=== PATIENT | female | born 1995 | race Caucasian/White ===

== ENCOUNTER 2022-05-15 12:42 | Outpatient (CLI) | payer OTHER, SELFPAY ==
--- NOTE | 2022-05-15 13:00 | CRLHL7_ITS ---
For Patients: As a result of the Cures Act, medical imaging exams and procedure reports are released immediately into your electronic medical record. You may view this report before your referring provider. If you have questions, please contact your health care provider. INDICATION: First trimester scan, establish dates. COMPARISON: None. TECHNIQUE: Real-time bazzi-scale imaging of the pelvis was performed. FINDINGS: Sonographic imaging demonstrates a single living intrauterine gestation. The embryo demonstrates a regular cardiac rate measuring 173 beats per minute. The embryo`s crown-rump length measurement of 2.1 cm corresponds to a gestational age of 8 weeks 5 days with a sonographic due date of 12/20/2022. There is a normal-appearing yolk sac. There are no gross abnormalities noted within the embryo at this early state of development. The gestational sac has a normal appearance. There is a 2.0 x 0.4 x 2.2 cm perigestational hemorrhage. The amount of fluid within the sac appears appropriate for gestational age. The cervix is closed. The myometrium appears normal. The ovaries are of normal size. Corpus luteal cyst right ovary. There are no suspicious fluid collections noted in the cul-de-sac. IMPRESSION: Single living intrauterine with sonographic gestational age 8 weeks 5 days and sonographic due date 12/20/2022. Inferior subchorionic hemorrhage measuring 2.0 x 0.4 x 2.2 cm. Dictated by Armand Lezama MD @ 05/15/2022 1:34:16 PM (Electronically Signed)
== END 2022-05-15 12:43 | disposition home or self-care (01) ==
LOC: US 12:44
PROVIDERS: PCP Family Medicine; Visit Provider Advanced Practice Midwife
DX: Z34.91 Encounter for supervision of normal pregnancy, unspecified, first trimester (principal); O20.9 Hemorrhage in early pregnancy, unspecified; Z3A.08 8 weeks gestation of pregnancy
CPT/HCPCS: 76817

== ENCOUNTER 2022-05-15 14:00 | Outpatient (CLI) | payer OTHER, SELFPAY ==
[2022-05-15 19:34] LABS: Chlamydia DNA Amplified* NOT DETECTED (No Detected); GC DNA Amplified* NOT DETECTED (No Detected)
[2022-05-15 21:56] LABS: Hepatitis B Surface Antigen* Negative (Negative)
[2022-05-15 22:09] LABS: HIV 1/2/P24 Combo Screen* Negative (Negative)
[2022-05-15 22:13] LABS: Hepatitis C Virus Antibody* Negative (Negative)
[2022-05-17 17:46] LABS: Rubella Antibody IgG 25.8 IU/mL
[2022-05-17 21:11] LABS: Rapid Plasma Reagin (RPR) Non Reactive (Non Reactive)
== END 2022-05-15 14:01 | disposition home or self-care (01) ==
PROVIDERS: PCP Family Medicine; Visit Provider Advanced Practice Midwife
DX: Z34.91 Encounter for supervision of normal pregnancy, unspecified, first trimester (principal); Z3A.09 9 weeks gestation of pregnancy
CPT/HCPCS: 86592; 86703; 86762; 86803; 86850; 86900; 86901; 87086; 87340; 87491

== ENCOUNTER 2022-07-30 12:42 | Outpatient (CLI) | payer OTHER, SELFPAY ==
--- NOTE | 2022-07-30 13:00 | CRLHL7_ITS ---
For Patients: As a result of the Century Cures Act, medical imaging exams and procedure reports are released immediately into your electronic medical record. You may view this report before your referring provider. If you have questions, please contact your health care provider. INDICATION: Evaluate anatomy. COMPARISON: 05/15/2022 TECHNIQUE: Real time bazzi scale imaging of the fetus was performed as well as color Doppler analysis of the umbilical vessels. FINDINGS: Sonographic imaging demonstrates a single living intrauterine gestation. Fetus demonstrates a regular cardiac rate of 150 beats per minute. Fetus has a variable position. The placenta lies anterior without evidence of placenta previa. The edge of the placenta is located 4.2 cm from the internal cervical os. Amniotic fluid volume appears normal. Single deepest vertical pocket: 4.9 cm. The cervix is closed and measures 3.5 cm in length. The composite ultrasound gestational age is calculated at 20 weeks 4 days with an estimated sonographic due date of 12/13/2022. The estimated weight is 358 grams which lies at the 66th %. The following biometric measurements were obtained: Biparietal diameter: 4.9 cm/20 weeks 6 days 79th% Head circumference: 17.9 cm/20 weeks 2 days 52nd% Abdominal circumference: 15.0 cm/20 weeks 2 days 47th% Femur length: 3.4 cm/20 weeks 6 days 66th% The HC/AC ratio measures: 1.19 range (1.07-1.25) On anatomic survey, there is a normal appearance of the cerebral ventricles, cavum septi pellucidi, cisterna magna and cerebellum. The nose, lips, and facial profile appear normal. The cervical, thoracic and lumbar spine are well visualized and appear normal. There is a normal four-chamber heart view and the left and right ventricular outflow tracts appear normal. The diaphragm and stomach appear normal. The bladder also appear normal. Mild right renal pelviectasis measuring 3 millimeters. This is considered incidental. There is a normal three-vessel cord and eccentric cord insertion site. The four extremities appear normal. IMPRESSION: Normal OB ultrasound exam with concordance of clinical and sonographic dating. No intrinsic abnormalities noted on anatomic survey. Dictated by Armand Lezama MD @ 07/31/2022 3:31:27 PM (Electronically Signed)
== END 2022-07-30 12:43 | disposition home or self-care (01) ==
LOC: US 12:43
PROVIDERS: PCP Family Medicine; Visit Provider Advanced Practice Midwife
DX: Z34.92 Encounter for supervision of normal pregnancy, unspecified, second trimester (principal); Z3A.20 20 weeks gestation of pregnancy
CPT/HCPCS: 76805

== ENCOUNTER 2022-08-27 14:30 | Outpatient (CLI) | payer OTHER, SELFPAY | END 2022-08-27 14:31 | disposition home or self-care (01) | LOC: NFLDREF 08-29 10:49 | PROVIDERS: PCP Family Medicine; Visit Provider Advanced Practice Midwife | DX: Z34.92 Encounter for supervision of normal pregnancy, unspecified, second trimester (principal); Z3A.24 24 weeks gestation of pregnancy | CPT/HCPCS: 87086 ==

== ENCOUNTER 2022-08-30 07:56 | Outpatient (CLI) | payer OTHER, SELFPAY ==
[2022-08-30 08:22] VITALS: BP 115/67; PULSE 87; RESP 18; TEMP 36.7
--- NOTE | 2022-08-31 09:25 | PC.OBNST ---
NST Note NST Note Start: 08/30/22 08:16 Freq: ONCE Status: Discharge Protocol: Document 08/30/22 11:00 ABP (Rec: 08/31/22 09:25 ABP [id number]) NST Note 3 Para (# of births) 2 EDC 12/16/22 Gestational Age In Weeks & Days 24 Weeks & 5 Days Patient Presented with Complaint(s) of Decreased movement, Observation after an injury If Observation after an injury, describe Fell on stairs and landed on back and then butt. Other Complaints Decreased movement after fall. Appropriate for Gestational Age Yes FERNANDA Barcenas, FERNANDA Date 08/30/22 Appropriate for Gestational Age Yes FERNANDA Maxwell RN Date 08/30/22 OB NST charge Yes Complete NST Note via Write Note Yes The provider's electronic signature indicates the NST is reactive/appropriate for gestational age. *Note to provider: If an addendum is required, open the patient's chart and click on the note under the Nurse/Allied Health tab.
== END 2022-08-30 11:00 | disposition home or self-care (01) ==
LOC: OB CLI 07:56 → OB 08:16
PROVIDERS: PCP Family Medicine; Visit Provider Advanced Practice Midwife
DX: Z34.92 Encounter for supervision of normal pregnancy, unspecified, second trimester (principal); Z3A.24 24 weeks gestation of pregnancy
CPT/HCPCS: 59025; 99213

== ENCOUNTER 2022-09-24 13:21 | Outpatient (CLI) | payer OTHER, SELFPAY ==
[2022-09-26 23:49] LABS: Rapid Plasma Reagin (RPR) Non Reactive (Non Reactive)
== END 2022-09-24 13:22 | disposition home or self-care (01) ==
LOC: NFLDREF 13:53
PROVIDERS: PCP Family Medicine; Visit Provider Advanced Practice Midwife
DX: Z34.83 Encounter for supervision of other normal pregnancy, third trimester (principal); Z3A.28 28 weeks gestation of pregnancy
CPT/HCPCS: 86592

== ENCOUNTER 2022-10-08 14:21 | Outpatient (CLI) | payer OTHER, SELFPAY | END 2022-10-08 14:22 | disposition home or self-care (01) | PROVIDERS: PCP Family Medicine; Visit Provider Registered Nurse | DX: R00.0 Tachycardia, unspecified (principal) | CPT/HCPCS: 84443 ==

== ENCOUNTER 2022-10-14 17:23 | Outpatient (CLI) | payer OTHER, SELFPAY ==
[2022-10-14] VITALS (8 sets, daily range): BP systolic 104–110; BP diastolic 57–64; PULSE 80–110; RESP 18; TEMP 36.6–36.7; O2SAT 98–100
[2022-10-14] MEDS: ACETAMINOPHEN 500 MG TABLET 1000 MG PO (18:16)
[2022-10-14 18:45] LABS: Appearance Urine Clear (Clear); Bilirubin Urine Negative (Negative); Blood Urine Negative (Negative); Color Urine Yellow (Yellow); Glucose Urine Negative (Negative); Ketones Urine Negative (Negative); Leukocyte Esterase Urine Trace (Negative); Nitrite Urine Negative (Negative); Protein Urine Negative (Negative); Urobilinogen Urine 0.2 (0.2-1.0)
[2022-10-14 18:47] LABS: RBC Urine 0-2 (0-2); Squamous Epithelial Cell Urine Few (None-Few)
[2022-10-14 20:14] LABS: Hematocrit 30.8 % (33.0-51.0); Hemoglobin* 10.4 gm/dL (12.0-16.0); Mean Corpuscular HGB Conc 34 gm/dL (32-36); Mean Corpuscular Hemoglobin 31 pg (26-34); Mean Corpuscular Volume 91 fL (80-100); Platelet Count* 222 K/uL (140-440); White Blood Count* 11.31 K/uL (4.50-11.00)
[2022-10-14 20:20] LABS: Slide Review Reflex No
[2022-10-14 20:31] LABS: Alanine Aminotransferase* 16 U/L (4-35); Aspartate Amino Transferase* 16 U/L (12-35); Blood Urea Nitrogen* 5 mg/dL (5-24); Creatinine* 0.5 mg/dL (0.5-1.5); Estimated Glomerular Filt Rate 131 ml/min
[2022-10-14 20:42] LABS: Creatinine Urine 20.4 mg/dL; Total Protein Urine 17 mg/dL
[2022-10-14 21:19] LABS: Total Protein Urine 17 mg/dL
[2022-10-14 21:20] LABS: Creatinine Urine 54.8 mg/dL
--- NOTE | 2022-10-14 22:46 | PC.OBNST ---
NST Note NST Note Start: 10/14/22 17:38 Freq: ONCE Status: Active Protocol: Document 10/14/22 22:44 MMB (Rec: 10/14/22 22:46 MMB [id number]) NST Note 1 Para (# of births) 0 EDC 12/16/22 Gestational Age In Weeks & Days 31 Weeks & 0 Days Patient Presented with Complaint(s) of Pain If Pain, describe location Right Lateral-mid abdomen pain Reactive Yes Appropriate for Gestational Age Yes RN Florecita RN Date 10/14/22 Reactive Yes Appropriate for Gestational Age Yes RN Lorne Nelson RN Date 10/14/22 OB NST charge Yes Complete NST Note via Write Note Yes The provider's electronic signature indicates the NST is reactive/appropriate for gestational age. *Note to provider: If an addendum is required, open the patient's chart and click on the note under the Nurse/Allied Health tab.
== END 2022-10-14 22:16 | disposition home or self-care (01) ==
LOC: OB CLI 17:30 → OB 17:34
PROVIDERS: PCP Family Medicine; Visit Provider Advanced Practice Midwife
DX: O47.03 False labor before 37 completed weeks of gestation, third trimester (principal); Z3A.31 31 weeks gestation of pregnancy
CPT/HCPCS: 36415; 59025; 81003; 81015; 82565; 82570; 84156; 84450; 84460; 84520; 85027; 87086; 99213; A9270

== ENCOUNTER 2022-11-07 14:38 | Outpatient (CLI) | payer OTHER, SELFPAY ==
[2022-11-07 16:27] LABS: Alanine Aminotransferase* 19 U/L (4-35); Aspartate Amino Transferase* 26 U/L (12-35); Creatinine* 0.6 mg/dL (0.5-1.5); Estimated Glomerular Filt Rate 125 ml/min
[2022-11-07 16:58] LABS: Total Protein Urine 13 mg/dL
[2022-11-07 17:00] LABS: Creatinine Urine 44.4 mg/dL
== END 2022-11-07 14:39 | disposition home or self-care (01) ==
PROVIDERS: PCP Family Medicine; Visit Provider Advanced Practice Midwife
DX: Z34.83 Encounter for supervision of other normal pregnancy, third trimester (principal); Z3A.34 34 weeks gestation of pregnancy
CPT/HCPCS: 82565; 82570; 84156; 84450; 84460

== ENCOUNTER 2022-11-19 14:30 | Outpatient (CLI) | payer OTHER, SELFPAY ==
[2022-11-20 12:24] LABS: Strep B DNA Probe NEGATIVE (Negative)
[2022-11-20 12:31] LABS: Strep B Pen/Amox Allergy No
== END 2022-11-19 14:31 | disposition home or self-care (01) ==
LOC: NFLDREF 14:30
PROVIDERS: PCP Family Medicine; Visit Provider Advanced Practice Midwife
DX: Z34.93 Encounter for supervision of normal pregnancy, unspecified, third trimester (principal); Z3A.36 36 weeks gestation of pregnancy
CPT/HCPCS: 87081; 87653

== ENCOUNTER 2022-12-14 15:52 | Inpatient (IN) | payer OTHER, SELFPAY ==
[2022-12-14] VITALS (84 sets, daily range): BP systolic 77–133; BP diastolic 40–77; PULSE 75–125; RESP 14; TEMP 36.7–37.1; O2SAT 92–100
--- NOTE | 2022-12-14 16:52 | P.LDBA_ITS ---
Subjective History of Present Illness Date Seen: 12/14/22 Narrative: Patient is being admitted to Labor and Delivery for active labor. She is a 27 year old at 39.5 weeks gestation. Her full history and physical was dictated by Chuy Vasquez CNM on 11/26/22. Please see this for details. 1.? Anxiety.? Well controlled w/ fluoxetine.? Has previously seen a therapist 2.? Hx of cardiac ablation for SVT Prior to 2nd , no issues with second OB - Problem Based A/P Additional Plan (1) Encounter for supervision of other normal in third trimester: Status: Acute (2) Anxiety: Problem details: Stable on fluoxatine Status: Acute Plan ASSESSMENT:? at 39.5 weeks gestation? GBS negative? Uncomplicated ? Active labor at term? ?? PLAN:? 1. Candidate for analgesia of choice. Planning unmedicated .? 2. Considering water . Waterbirth room is occupied. Will consider moving if becomes available and pt desires. Consent signed. Hep C negative.? 3. Anticipate .? 4. Expectant management at this time.? 5. No IV placement necessary at this time. Consider if condition changes or she desired pain management. 6. Intermittent monitoring after reactive strip is obtained. Continuous if there is a change in condition meeting criteria.? ? Delivery/Labor/Induction Plan Plan: expectant management OB Result Labs Blood Type: A (+) positive GBS Status: negative OB Exam Physical Exam Vital signs: Pulse BP 88 118/77 12/14/22 15:57 12/14/22 15:57 Narrative: Vitals per EMR? Psychiatric:? Alert and oriented x3? HEENT:? Normocephalic, atraumatic? Neck:? Supple without adenopathy or thyromegaly? Lungs:? Clear to auscultation bilaterally? Heart:? Regular rate and rhythm, no murmur, rub or gallop? Abdomen:? Soft, nontender, and gravid? Extremities:? No edema or erythema? Detailed Labor and Delivery Exam Patient Gravid: Yes Dilation (cm): 4 Effacement (%): 80 Cervix position: mid (maternal right) Consistency: medium Contraction Frequency: 2-5 min Tachysystole: No Contraction intensity: Moderate Fetus (Single) Station: -2 Amniotic Membrane Status: intact Heart Rate Baseline: 145 Monitor Accelerations: Present Monitor Decelerations: None Prison Variability: Moderate (6-25)
[2022-12-14 17:17] LABS: Basophils Percent Auto 0.2 % (0.0-3.0); Eosinophils Percent Auto 0.4 % (0.0-7.0); Hematocrit 35.9 % (33.0-51.0); Immature Granulocytes Pct Auto 0.3 %; Lymphocytes Percent Auto 11.9 % (20-44); Mean Corpuscular HGB Conc 33 gm/dL (32-36); Mean Corpuscular Hemoglobin 31 pg (26-34); Mean Corpuscular Volume 91 fL (80-100); Monocytes Percent Auto 5.6 % (0.0-11.0); Neutrophils Percent Auto 81.6 % (42.0-72.0); Platelet Count* 212 K/uL (140-440); RDW Coefficient of Variation % 13.8 % (11.5-15.5); Red Blood Count 3.94 m/uL (4.00-5.20); White Blood Count* 15.88 K/uL (4.50-11.00)
[2022-12-14 17:18] LABS: Slide Review Reflex No
[2022-12-14 17:28] LABS: SARS PCR* Negative SARS-CoV-2 (Negative)
[2022-12-14] MEDS: fentaNYL 100 MCG/2 ML inj IVP (18:45)
[2022-12-14] MEDS: LACTATED RINGERS 1000 ML 1,000 ML 750 ML IV (19:13)
[2022-12-14] MEDS: PHENYLEPHRINE 100 MCG/ML SYRINGE IVP ×2 (20:17→21:29)
[2022-12-14] MEDS: LIDOCAINE 2% (PF) 5 ML VIAL EPIDURAL (20:20)
[2022-12-14] MEDS: ROPIVACAINE 0.2% 100 ml 100 ML 11 MG EPIDURAL (20:25)
--- NOTE | 2022-12-14 20:40 | P.ANBPRC_ITS ---
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 , office work, 2 kids Non-smoker Social drinker (2-3/week) Smoking Status: Never smoker Little interest or pleasure in doing things: not at all Feeling down, depressed, or hopeless: not at all Meds Home Medications and Allergies Home Medications Medication Instructions Recorded Confirmed Type fluoxetine 40 mg capsule 40 mg PO QAM 05/15/22 12/09/22 History magnesium 250 mg tablet 250 mg PO QDAY 05/15/22 12/09/22 History vits 75-iron 28 mg-folic pkg PO 05/15/22 12/09/22 History acid 800 mcg-omega-3 oral combo pack (One A Day Women's DHA) ferrous sulfate 325 mg (65 mg 325 mg PO Q OTHER DAY 10/08/22 12/09/22 History iron) tablet doxylamine succinate 25 mg tablet 25 mg PO ONCE PRN 11/19/22 12/09/22 History (Unisom (doxylamine)) Allergies Allergy/AdvReac Type Severity Reaction Status Date / Time metronidazole AdvReac Intermediate Stomach Verified 12/09/22 08:54 ache Results Labs Labs: Laboratory Results - last 24 hr 12/14/22 12/14/22 15:50 17:09 WBC 15.88 H RBC 3.94 L Hgb 12.0 Hct 35.9 MCV 91 MCH 31 MCHC 33 RDW Coeff of Vivian 13.8 Plt Count 212 Neut % (Auto) 81.6 H Lymph % (Auto) 11.9 L [place] % (Auto) 5.6 Eos % (Auto) 0.4 Baso % (Auto) 0.2 Neut # (Auto) 13.00 H Lymph # (Auto) 1.90 [place] # (Auto) 0.90 Eos # (Auto) 0.10 Baso # (Auto) 0.00 SARS-CoV-2 (PCR) Negative SARS-CoV-2 Vital Signs Vital Signs: Last Vital Signs Temp 98.0 F 12/14/22 15:57 Pulse 86 12/14/22 20:37 Resp 14 12/14/22 15:57 BP 98/63 12/14/22 20:37 Pulse Ox 98 12/14/22 20:36 Weight: 81.873 kg Height: 165.1 cm Anesthesia Procedures Epidural Insertion Patient Location: OB Start Time: 20:00 Stop Time: 21:00 Start Date: 12/14/22 Stop Date: 12/14/22 Reason for Block: procedure for pain Patient Position: sitting Performed By: Deb Marsh Preanesthetic Checklist: IV checked, risks and benefits discussed, monitors and equipment checked, pre-op evaluation, timeout performed and anesthesia consent Prep: chlorhexidine gluconate Monitoring: blood pressure monitoring, continuous pulse oximetry and heart rate Approach: midline Vertebral Space: lumbar (1-5) Epidural Technique: CYNTHIA saline Needle Type: Tuohy needle Injection Technique: continuous catheter (continuous catheter) Needle gauge: 17 Needle Length (cm): 10 cm Needle Insertion Depth (cm): 6 Catheter Gauge: 19 Catheter Type: multi-orifice Catheter at skin depth (cm): 15 Test Dose Result: negative and lidocaine 1.5% with epinephrine 1 to 200,000
[2022-12-14] MEDS: ePHEDrine sulfate 5 MG/ML inj 10 MG IVP (21:14)
[2022-12-14] MEDS: ONDANSETRON 2 MG/ML inj 4 MG IV (23:49)
[2022-12-15] VITALS (22 sets, daily range): BP systolic 80–134; BP diastolic 49–80; PULSE 79–130; RESP 16; TEMP 36.5–36.7; O2SAT 96–97
[2022-12-15] MEDS: OXYTOCIN 30 unit/500 ML in NS 30 UNIT/500 ML BAG IVPB (01:20)
[2022-12-15] MEDS: IBUPROFEN 600 MG TABLET PO ×3 (03:12→19:58)
[2022-12-15] MEDS: LACTATED RINGERS 1000 ML 1,000 ML 750 ML IV (05:16)
[2022-12-15] MEDS: DOCUSATE SODIUM 100 MG CAPSULE PO (11:08)
--- NOTE | 2022-12-15 11:54 | P.OBPRC_ITS ---
Procedure Delivery date: 12/15/22 Procedure Done: Global Procedure Details: Late documentation due to computer system down time after delivery: Patient is a 27 year-old G3 now P3 admitted on 12/14/22 at 39 Weeks, 5 Days gestation for active labor.? Cervical exam on admission was 4 cm/80 % effaced/-2 station with membranes intact in vertex presentation.? Contractions were every 2-5 minutes.? heart rate demonstrated baseline 145 bpm with moderate variability, + accelerations, - decelerations; a category 1 tracing.? SROM occurred at 2057 with meconium fluid.? Silvia presented in spontaneous labor. She labored on the unit and ultimately decided to get an epidural. After the epidural she did experience some drops in her blood pressure. This was treated by the RN per their policy. After multiple doses her blood pressure was often measured to be low but she was asymptomatic as was baby. She had god relief from the epidural but did experience frequent nausea. She states that this has happened with every epidural. ?? Labor Analgesia:? Fentanyl x1 dose then Epidural ?? Pitocin:? Yes, augmentation of labor and ?? Labor onset:? 1800? ?? Complete:? 2302? ?? Pushing:? 0036? ?? heart tones during second stage were category II with variable decelerations, +accels, moderate variability and baseline 150-160.?There were deep variables down to 100bpm with good recovery either spontaneously or with position changes. ?? At 215 a viable male infant delivered in vertex AMANDA presentation over intact perineum via spontaneous vaginal delivery.? Infant was placed on maternal abdomen.? Cord was clamped and cut after a 5 minute delay.? Nose and mouth were bulb suctioned.?Baby was taken to the warmer at about 6 minutes for lack of respiratory effort and color. The philatelic consultant was present and assumed care. He was given PPV and found to ultimately have a mucus plug that was impeding breathing. See her note for more details. After he was stabilized her was brought back to mom. weight 8lb 10oz.? 6 at 1 minute and 6 at 5 minutes and 4 at 10 minutes.? Shoulder dystocia: no.? Nuchal cord: yes, loose x1, reduced easily.? ?? Placenta delivered spontaneously and complete at 0228 with a 3 vessel cord. There was a marginal cord insertion.? ?? Mother and were stable after delivery.? ?? Lacerations:? 1st degree perineal, hemostatic and not needing repair.? ?? Blood loss: 50 mL.? Blood loss measurement type: QBL? Sponge and needles counts are correct.? Events: Labor Augmentation and Meconium Stained Fluid (moderatly stained mec fluid) Intrapartal Events: Anesthesia Complications (low blood pressures after epidural. treated.) Delivery augmentation: pitocin Delivery monitor: external FHT and external uterine Route of delivery: Episiotomy description: None Laceration description: Perineal - 1st Degree (no repair needed) Estimated blood loss (mL): 50 Anesthesia type: Epidural Disposition: floor Gender: Male presentation: vertex Placental Delivery Description: Spontaneous Cord Description: 3 Vessels, Nuchal Cord, Loose and Reduced total score - 1 minute: 6 total score - 5 minute: 7 total score - 10 minute: 4 OB Vag Delivery Procedures Additional Procedures NST: Yes Laceration Repair: No
[2022-12-15] MEDS: ACETAMINOPHEN 500 MG TABLET 1000 MG PO (16:11)
[2022-12-16 01:20] VITALS: BP 108/73; PULSE 74; RESP 16; O2SAT 99
[2022-12-16] MEDS: ACETAMINOPHEN 500 MG TABLET 1000 MG PO ×2 (01:25→07:32)
[2022-12-16 06:23] LABS: Hemoglobin* 10.8 gm/dL (12.0-16.0)
[2022-12-16] MEDS: IBUPROFEN 600 MG TABLET PO (06:48)
[2022-12-16] MEDS: DOCUSATE SODIUM 100 MG CAPSULE PO (07:32)
[2022-12-16 07:34] VITALS: BP 107/62; PULSE 90; RESP 16; TEMP 36.5; O2SAT 97
--- NOTE | 2022-12-16 07:35 | P.DS_ITS ---
DS: Providers Provider Time Seen by Provider: 07:35 Date Seen: 12/16/22 Date of admission: 12/14/22 15:52 Primary care physician: Armand Otero MD Admitting Clinician: Rosario Vasquez CNM Attending Physician on discharge: Kristy Ku CNM Date of Discharge: 12/16/22 DS: Diagnosis Discharge Diagnosis (1) state: Status: Acute Exam Narrative: Exam Narrative: Objective: VSS, afebrile GENERAL APPEARANCE: ?normal affect, alert, no distress MOOD: ?appropriate HEENT: normocephalic, neck supple, full ROM CHEST: ?Symmetrical chest wall movement. ?Normal respiratory effort. ?Clear to auscultation HEART: ?regular rate and rhythm ABDOMEN: ?soft, non-tender. Uterine fundus is firm, 2 above Umbilicus, Midline and is appropriate for the stage of recovery. ?Bowel sounds present. PERINEUM: deferred, no concerns per RN EXTREMITIES: ?normal and no edema Const: Vital Signs, click to edit/add: Vital Signs - 24 hr 12/15/22 07:56 12/15/22 12:22 12/15/22 15:42 Temperature 97.9 F 97.8 F 97.7 F Pulse Rate [Pulse Oximeter] 100 96 83 Respiratory Rate 16 16 16 Blood Pressure [Ri ght Arm] 105/68 100/67 102/68 Pulse Oximetry 96 97 96 Oxygen Delivery Me thod Room Air Room Air Room Air 12/15/22 19:51 12/16/22 01:20 Temperature 98.0 F Pulse Rate [Pulse Oximeter] 79 74 Respiratory Rate 16 16 Blood Pressure [Ri ght Arm] 94/62 108/73 Pulse Oximetry 97 99 Oxygen Delivery Me thod Room Air Room Air Documenting provider has reviewed patient's vital signs: yes OB - DS: Summary Hospital Course Hospital Course: Subjective: Silvia is a 27 y.o. G3 now P3 who was admitted to L & D for active . ?She had an uncomplicated spontaneous vaginal delivery. The patient feels well. ?The pain is well controlled with current medications. ?She has no new complaints. ?She is formula feeding and reports things are going well.? the patient has done well.? Vitals have been stable.? She has remained afebrile.? Has a good appetite, is tolerating a general diet. ?She is voiding without difficulty.? She is passing gas and has not had a bowel movement.? She is ambulating and denies any dizziness.? Has a small amount of rubra lochia. ?Silvia stated she does not need any prescriptions for pain medication or stool softeners at this time. She is planning condoms for prevention. Assessment: G3 now P3 Anxiety - controlled with medication plan: Discharge home with baby. Follow up in 2 weeks and 6 weeks in clinic. Peripartum Data Infant delivery method: Vaginal Laceration description: Perineal - 1st Degree (unrepaired) complications: none [place] Infant Gender: Male (Kylee) Discharge Plan: Home Status at Discharge Functional status at discharge: independent ambulation Overall status at discharge: patient is progressing back to baseline Time Spent with Patient Time attestation: Total time spent providing and/or coordinating discharge services: Time spent: Less than 30 minutes Discharge Plan Discharge Disposition: Home, Self-Care Date of Admission: 12/14/22 15:52 Attending Provider on Discharge: Kristy Cardoso Primary Care Provider: Armand Otero Condition: Stable Anticipated Discharge Date/Time: 12/16/22 07:42 Discharge Medications: New acetaminophen 500 mg Tablet 1,000 mg PO Q6H PRN (Reason: pain/fever) Qty: 0 0RF docusate sodium 100 mg Capsule 100 mg PO DAILY Qty: 0 0RF ibuprofen 600 mg Tablet 600 mg PO Q6H PRNQty: 0 0RF Continued ferrous sulfate 325 mg (65 mg iron) tablet 325 mg PO Q OTHER DAY One A Day Women's DHA 28 mg iron- 800 mcg combo pack PO fluoxetine 40 mg capsule 40 mg PO QAM magnesium 250 mg tablet 250 mg PO QDAY Unisom (doxylamine) 25 mg tablet 25 mg PO ONCE PRN Discharge Orders: Discharge Order (Routine); Ordered 12/16/22 Ordered By: Kristy Cardoso Patient Education: OB Over the Counter Medication Information, OB Vaginal/Bottle Feeding Activity Level: Activity as Tolerated Activity Detail: 2 & 6 week visits in the clinic Discharge Diet: Regular Follow Up Appointments: Armand Otero MD [Primary Care Provider] - Forms: [facility] Info Instructions
== END 2022-12-16 10:17 | disposition home or self-care (01) | DRG 807 ==
LOC: OB OUT 17:19 → OB 17:19
PROVIDERS: Admitting Provider Advanced Practice Midwife; PCP Family Medicine; Visit Provider Advanced Practice Midwife
DX: O70.0 First degree perineal laceration during delivery (principal); Z37.0 Single live birth; F41.9 Anxiety disorder, unspecified; Z3A.39 39 weeks gestation of pregnancy; O99.344 Other mental disorders complicating childbirth
CPT/HCPCS: 01967; 36415; 85018; 85025; 87635; 99213; A9270; J2370; J2405; J2795; J3010; J7120

== ENCOUNTER 2025-08-19 09:13 | Outpatient (CLI) | payer OTHER, SELFPAY | END 2025-08-19 09:14 | disposition home or self-care (01) | LOC: NFLDREF 08-25 12:54 | PROVIDERS: PCP Family Medicine; Referring Provider Family Medicine; Visit Provider Physician Assistant Surgical | DX: N30.01 Acute cystitis with hematuria (principal); R30.0 Dysuria | CPT/HCPCS: 87086 ==